=== PATIENT | female | born 1985 | race African-American/Black ===

== ENCOUNTER 2019-01-27 11:48 | Emergency (ER) | payer OTHER, SELFPAY ==
[2019-01-27 11:56] VITALS: BP 115/74; PULSE 78; RESP 22; TEMP 36.7; O2SAT 100; BMI 30.4
--- NOTE | 2019-01-27 12:01 | DI.RAD.S_ITS ---
PROCEDURE: XR CHEST 2V INDICATIONS: shortness of breath TECHNIQUE: 2 views of the chest were acquired. COMPARISON: None. FINDINGS: Surgical changes and devices: None. Lungs and pleura: Lungs are clear. No pleural effusions or pneumothorax. Mediastinum: Mediastinal contours are normal. Heart size is normal. Bones and chest wall: No suspicious bony abnormalities. Soft tissues appear unremarkable. Artificial hair artifact can be seen. IMPRESSION: No acute cardiopulmonary process is seen. Dictated by: Romario Medina M.D. on 01/27/2019 at 12:05 Approved by: Romario Medina M.D. on 01/27/2019 at 12:08
[2019-01-27 12:37] VITALS: BP 115/60; PULSE 84; RESP 18; O2SAT 100
[2019-01-27 12:52] VITALS: PULSE 72; RESP 24; O2SAT 100
[2019-01-27] MEDS: ALBUTEROL 2.5 MG/3 ML NEB (ADULT) INH (12:52)
[2019-01-27 13:08] LABS: Alanine Aminotransferase 27 IU/L (9-52); Albumin 4.5 g/dL (3.5-5.0); Albumin Globulin Ratio 1.3 (1.0-2.8); Alkaline Phosphatase 76 U/L (38-126); Aspartate Aminotransferase 28 IU/L (14-36); BUN Creatinine Ratio 14.3 (6-22); Bilirubin Total 0.3 mg/dL (0.2-1.3); Blood Urea Nitrogen 10 mg/dL (7-17); Calcium 9.6 mg/dL (8.4-10.2); Carbon Dioxide 28 mmol/L (22-32); Chloride 106 mmol/L (98-107); Estimated Glomerular Filt Rate > 60.0 mL/min (>60); Globulin 3.6 g/dL (1.7-4.1); Glucose 90 mg/dL (70-100); HEMOLYSIS < 15 (0-50); Potassium 3.7 mmol/L (3.4-5.1); Sodium 143 mmol/L (137-145); Total Protein 8.1 g/dL (6.3-8.2)
[2019-01-27 13:10] LABS: Lactate (Lactic Acid) 0.9 mmol/L (0.7-2.1)
--- NOTE | 2019-01-27 13:10 | ED.CHESTPAIN ---
HPI - Chest Pain General Chief Complaint: Chest Pain Stated Complaint: CHEST PRESSURE AND HARD TIME BREATHING Time Seen by Provider: 01/27/19 12:59 Source: patient Mode of arrival: ambulatory Limitations: no limitations History of Present Illness HPI narrative: 33-year-old female comes to the emergency department with complaint of chest pressure. Patient states it started 3 days ago. She states that she feels like she can't quite catch her breath. She states it is worse if she walks like say from the car but she does not appreciate if it is worse if she is going up the stairs. She denies any chest pain is more pressure. She has had a cough, she said there was mucus and a little bit of bloody tinged sputum on Tuesday and Tuesday. Now it is just a little bit of clear mucus. She has some chills and fevers which have improved. She is not any stuffy nose. She has not had any nausea no vomiting no diarrhea or constipation. She has felt like her stomach is more bubbly. No urinary symptoms, no swelling in her lower extremities. She has felt a little lightheaded but no syncope. Past medical history includes migraines, she has had C-sections no other surgeries. She does not take any medications regularly. She quit smoking tobacco 3 years ago, no alcohol, no illicit. She did have long distance travel from [place] to [place], they traveled through [place] by airline. She denies any family history of cardiac, pulmonary or embolic history. Related Data Previous Rx's Medication Instructions Recorded albuterol sulfate 2 puff INHALATION Q4-6H PRN #8 gram 01/27/19 prednisone 50 mg PO DAILY #5 tab 01/27/19 Allergies Allergy/AdvReac Type Severity Reaction Status Date / Time synthetic AdvReac Rash Uncoded 01/27/19 12:01 Review of Systems Review of Systems ROS Unobtainable: All systems reviewed & are unremarkable except as noted in HPI and below Constitutional Reports chills (Improved), Denies fatigue, Reports fever(s) (Improved), Denies lethargy and Denies weakness ENT Ears, Nose, Mouth, and Throat: Denies nasal congestion Cardiovascular Reports chest pain (Pressure), Denies diaphoresis, Denies syncope, Denies rapid heart rate, Denies edema, Denies irregular heart rhythm, Denies leg edema, Reports lightheadedness, Denies palpitations, Reports dyspnea (Feels like she can't catch her breath) and Denies orthopnea Respiratory Reports change in phlegm color, Denies chest congestion, Reports cough, Reports hemoptysis, Reports excessive phlegm production, Denies pain on inspiration, Denies pain with cough, Reports dyspnea (Feels like she can't catch her breath), Denies stridor and Denies wheezing Gastrointestinal Gastrointestinal: Denies abdominal pain, Denies change in bowel habits, Denies constipation, Denies diarrhea, Denies nausea and Denies vomiting Genitourinary Denies hematuria, Denies urinary frequency, Denies dysuria, Denies flank pain, Denies urinary incontinence and Denies urinary urgency Integumentary/Breasts Denies erythema Neurologic Denies syncope and Denies weakness Endocrine Denies fatigue and Denies palpitations Allergic/Immunologic Denies wheezing [facility] Medical History (Updated 01/27/19 @ 13:37 by Dot Johnson DO) Migraines (Chronic) Surgical History (Updated 01/27/19 @ 13:31 by Dot Johnson DO) History of (Chronic) Social History (Updated 01/27/19 @ 13:32 by Dot Johnson DO) Smoking Status: Former smoker alcohol intake: never substance use type: does not use Social History (Updated 01/27/19 @ 13:32 by Dot Johnson DO) Smoking Status: Former smoker alcohol intake: never substance use type: does not use Exam Narrative Exam Narrative: GEN: well nourished, well appearing female, alert and oriented x 3, patient appears to be in no acute distress. HEENT: Atraumatic, pupils are equal round reactive to light, extraocular movements are intact, nares are clear. HEART: Regular rate and rhythm without murmur, clicks, rubs. Pulses equal bilateral lower extremities. LUNGS:Lungs clear to auscultation, no wheezes, rales, crackles, chest moves symmetrically, no tachypnea, no accessory muscle use. ABD:bowel sounds normal, soft, non-tender, no guarding, rebound, rigidity, no masses noted, no hepatosplenomegaly :No CVA tenderness MSCL: Non-tender, full range of motion. Swelling of bilateral lower extremities. No erythema or skin changes. Patient has 2+ pulses in bilateral lower extremities. NEURO:CN 2-12 intact, sensation normal Initial Vital Signs Initial Vital Signs: Vital Signs Temperature 98.0 F 01/27/19 11:56 Pulse Rate 78 01/27/19 11:56 Respiratory Rate 22 01/27/19 11:56 Blood Pressure 115/74 01/27/19 11:56 Pulse Oximetry 100 01/27/19 11:56 Scores HEART Score Heart Score history: Slightly Suspicious Heart Score EKG: Normal Heart Score Age: < 45 years old Heart Score risk factors: No known risk factors Heart Score troponin: < or = to normal limit Heart Score Total: 0 PERC Score Age greater than or equal to 50 years: No Heart rate greater than or equal to 100 bpm: No Room Air O2 Sat less than 95%: No Unilateral leg swelling: No Recent trauma or surgery: No Hemoptysis: Yes Prior PE or DVT: No Hormone Use: No Total PERC Score: 1 Course Orders Ordered: ED Orders 01/27/19 11:53 EKG-12 Lead Stat 01/27/19 12:01 XR chest 2V Stat Measure peak expiratory flow ONCE RT Consult Eval and Treat Now 01/27/19 12:30 Complete Blood Count AUTO DIFF Stat Comprehensive Metabolic Panel Stat D Dimer Stat Lactate (Lactic Acid) Stat Troponin & CK Cardiac Panel Stat Discontinued Medications Albuterol (Ventolin) 2.5 mg INH NOW PRN PRN Reason: Wheezing Last Admin: 01/27/19 12:52 Dose: 2.5 mg Vital Signs - 8 hr 01/27/19 11:56 01/27/19 12:37 01/27/19 12:52 Temperature 98.0 F Pulse Rate 78 84 72 Respiratory Rate 22 18 24 Blood Pressure 115/74 Blood Pressure [Right Arm] 115/60 Pulse Oximetry 100 100 100 01/27/19 13:30 01/27/19 14:06 01/27/19 14:22 Temperature Pulse Rate 82 91 H 77 Respiratory Rate 13 19 21 Blood Pressure 124/66 Blood Pressure [Right Arm] 114/63 124/66 Pulse Oximetry 100 100 99 MDM - Chest Pain Lab Data Attestation: I reviewed the patient's lab results. Result diagrams: 01/27/19 12:30 01/27/19 12:30 Lab Results 01/27/19 01/27/19 01/27/19 Range/Units 12:30 12:30 12:30 WBC 7.3 (4.5-11.0) X10^3/uL RBC 4.35 (4.0-5.2) X10^6/uL Hgb 12.2 (12.0-16.0) g/dL Hct 36.7 (36-46) % MCV 84.4 (80-100) fL MCH 28.2 (26-34) PG MCHC 33.4 (30-36) % RDW 14.4 (11.6-14.8) % Plt Count 281 (150-400) X10^3/uL Neut % (Auto) 59.2 (50-75) % Lymph % (Auto) 34.1 (25-40) % [place] % (Auto) 5.7 (3-14) % Eos % (Auto) 0.6 L (2-4) % Baso % (Auto) 0.4 (0-2) % Neut # (Auto) 4400 (1047-5616) /uL Lymph # (Auto) 2500 (3039-0474) /uL [place] # (Auto) 400 (0-900) /uL Eos # (Auto) 0 (0-450) /uL Baso # (Auto) 0 (0-100) /uL D-Dimer (<230) ng/mL Sodium 143 (137-145) mmol/L Potassium 3.7 (3.4-5.1) mmol/L Chloride 106 (98-107) mmol/L Carbon Dioxide 28 (22-32) mmol/L BUN 10 (7-17) mg/dL Creatinine 0.70 (0.52-1.04) mg/dL Estimated GFR > 60.0 (>60) mL/min BUN/Creatinine Ratio 14.3 (6-22) Glucose 90 (70-100) mg/dL Lactate 0.9 (0.7-2.1) mmol/L Calcium 9.6 (8.4-10.2) mg/dL Total Bilirubin 0.3 (0.2-1.3) mg/dL AST 28 (14-36) IU/L ALT 27 (9-52) IU/L Alkaline Phosphatase 76 (38-126) U/L Total Creatine Kinase (30-135) U/L CK-MB (CK-2) CK-MB (CK-2) Rel Index Troponin I (0.01-0.034) ng/mL Total Protein 8.1 (6.3-8.2) g/dL Albumin 4.5 (3.5-5.0) g/dL Globulin 3.6 (1.7-4.1) g/dL Albumin/Globulin Ratio 1.3 (1.0-2.8) 01/27/19 01/27/19 Range/Units 12:30 12:30 WBC (4.5-11.0) X10^3/uL RBC (4.0-5.2) X10^6/uL Hgb (12.0-16.0) g/dL Hct (36-46) % MCV (80-100) fL MCH (26-34) PG MCHC (30-36) % RDW (11.6-14.8) % Plt Count (150-400) X10^3/uL Neut % (Auto) (50-75) % Lymph % (Auto) (25-40) % [place] % (Auto) (3-14) % Eos % (Auto) (2-4) % Baso % (Auto) (0-2) % Neut # (Auto) (9856-7125) /uL Lymph # (Auto) (1608-7287) /uL [place] # (Auto) (0-900) /uL Eos # (Auto) (0-450) /uL Baso # (Auto) (0-100) /uL D-Dimer < 200 (<230) ng/mL Sodium (137-145) mmol/L Potassium (3.4-5.1) mmol/L Chloride (98-107) mmol/L Carbon Dioxide (22-32) mmol/L BUN (7-17) mg/dL Creatinine (0.52-1.04) mg/dL Estimated GFR (>60) mL/min BUN/Creatinine Ratio (6-22) Glucose (70-100) mg/dL Lactate (0.7-2.1) mmol/L Calcium (8.4-10.2) mg/dL Total Bilirubin (0.2-1.3) mg/dL AST (14-36) IU/L ALT (9-52) IU/L Alkaline Phosphatase (38-126) U/L Total Creatine Kinase 81 (30-135) U/L CK-MB (CK-2) TNP CK-MB (CK-2) Rel Index TNP Troponin I < 0.012 (0.01-0.034) ng/mL Total Protein (6.3-8.2) g/dL Albumin (3.5-5.0) g/dL Globulin (1.7-4.1) g/dL Albumin/Globulin Ratio (1.0-2.8) Imaging Data Chest x-ray: Radiologist's impression: [address] [address] XRay Report Signed Patient: CINDY APONTE#: [id number] : 1985Acct:[id number] Age/Sex: 33 / FDate of Service: 01/27/19 Loc: ED Accession Number: [id number] Procedure: XR chest 2V Ordering Provider: Dot Johnson D.O. PROCEDURE: XR CHEST 2V INDICATIONS: shortness of breath TECHNIQUE: 2 views of the chest were acquired. COMPARISON: None. FINDINGS: Surgical changes and devices: None. Lungs and pleura: Lungs are clear. No pleural effusions or pneumothorax. Mediastinum: Mediastinal contours are normal. Heart size is normal. Bones and chest wall: No suspicious bony abnormalities. Soft tissues appear unremarkable. Artificial hair artifact can be seen. IMPRESSION: No acute cardiopulmonary process is seen. Dictated by: Romario Medina M.D. on 01/27/2019 at 12:05 Approved by: Romario Medina M.D. on 01/27/2019 at 12:08 ECG Data Attestation: I personally reviewed and interpreted this ECG as follows: Interpretation: Sinus rhythm with a rate 89 DC 155 QRS of 90 and QTC of 398. No ST elevation or depression appreciated. No S1, has Q3T3. No prior EKG available. MDM Narrative Medical decision making narrative: Patient comes in with complaint of shortness of breath cough and a little bit hemoptysis that was productive with mucus as well. Initially on exam she was wheezy for respiratory therapy gave her albuterol treatment which resolved her wheezing. Patient states she does not notice a big difference in her symptoms at this time. Patient's chest x-ray is negative, EKG shows no acute changes, patient has a little Q-wave in V3 but no S1. She has not have any vital sign changes. Lab work is normal with a normal CBC, CMP, D-dimer and troponin are negative. Discussed with patient her heart rate was above 90 at 1 point. She has had trouble, she has had a little bit hemoptysis with her shortness of breath. My suspicion is actually much more higher for bronchitis with her wheeze when she 1st arrived but we could evaluate with CT 8. Patient defers. She suspects that she also has bronchitis at this time. We discussed signs symptoms watch for and reasons to return emergently. Discharge Plan Departure Patient Disposition: Home Clinical Impression: Bronchitis Discharge Date/Time: 01/27/19 14:23 Interventions: ED Discharge Assessment Last Done: 01/27/19 14:22 Instructions: DI for Acute Bronchitis Activity Restrictions/Additional Instructions: Follow-up with primary care the next 24-48 hours for recheck. Call for an appointment. Take steroids until completely gone. Use albuterol inhaler 1-2 puffs every 4 hours as needed. Return to the emergency department for new fevers greater than a 100.4 F, chest pressure pain, worsening shortness of breath, persistent nausea or vomiting, black or bloody stools, passing out, worsening swelling of her lower extremities or other new or concerning symptoms. Prescriptions: New prednisone 50 mg tablet 50 mg PO DAILY Qty: 5 RF: 0 albuterol sulfate 90 mcg/actuation HFA aerosol inhaler 2 puff INHALATION Q4-6H PRN (Reason: shortness of breath or wheezing) Qty: 8 RF: 0
--- NOTE | 2019-01-27 13:14 | ED_ITS ---
HPI - Chest Pain General Chief Complaint: Chest Pain Stated Complaint: CHEST PRESSURE AND HARD TIME BREATHING Time Seen by Provider: 01/27/19 12:59 Source: patient Mode of arrival: ambulatory Limitations: no limitations History of Present Illness HPI narrative: 33-year-old female comes to the emergency department with complaint of chest pressure. Patient states it started 3 days ago. She states that she feels like she can't quite catch her breath. She states it is worse if she walks like say from the car but she does not appreciate if it is worse if she is going up the stairs. She denies any chest pain is more pressure. She has had a cough, she said there was mucus and a little bit of bloody tinged sput um on Tuesday and Tuesday. Now it is just a little bit of clear mucus. She has some chills and fevers which have improved. She is not any stuffy nose. She has not had any nausea no vomiting no diarrhea or constipation. She has felt like her stomach is more bubbly. No urinary symptoms, no swelling in her lower extremities. She has felt a little lightheaded but no syncope. Past medical history includes migraines, she has had C-sections no other surgeries. She does not take any medications regularly. She quit smoking tobacco 3 years ago, no alcohol, no illicit. She did have long distance travel from [place] to [place], they traveled through [place] by airline. She denies any family history of cardiac, pulmonary or embolic history. Related Data Previous Rx's Medication Instructions Recorded albuterol sulfate 2 puff INHALATION Q4-6H PRN #8 gram 01/27/19 prednisone 50 mg PO DAILY #5 tab 01/27/19 Allergies Allergy/AdvReac Type Severity Reaction Status Date / Time synthetic AdvReac Rash Uncoded 01/27/19 12:01 Review of Systems Review of Systems ROS Unobtainable: All systems reviewed & are unremarkable except as noted in HPI and below Constitutional Reports chills (Improved), Denies fatigue, Reports fever(s) (Improved), Denies lethargy and Denies weakness ENT Ears, Nose, Mouth, and Throat: Denies nasal congestion Cardiovascular Reports chest pain (Pressure), Denies diaphoresis, Denies syncope, Denies rapid heart rate, Denies edema, Denies irregular heart rhythm, Denies leg edema, Reports lightheadedness, Denies palpitations, Reports dyspnea (Feels like she can't catch her breath) and Denies orthopnea Respiratory Reports change in phlegm color, Denies chest congestion, Reports cough, Reports hemoptysis, Reports excessive phlegm production, Denies pain on inspiration, Denies pain with cough, Reports dyspnea (Feels like she can't catch her breath), Denies stridor and Denies wheezing Gastrointestinal Gastrointestinal: Denies abdominal pain, Denies change in bowel habits, Denies constipation, Denies diarrhea, Denies nausea and Denies vomiting Genitourinary Denies hematuria, Denies urinary frequency, Denies dysuria, Denies flank pain, Denies urinary incontinence and Denies urinary urgency Integumentary/Breasts Denies erythema Neurologic Denies syncope and Denies weakness Endocrine Denies fatigue and Denies palpitations Allergic/Immunologic Denies wheezing PFSH Medical History (Updated 01/27/19 @ 13:37 by Dot Johnson DO) Migraines (Chronic) Surgical History (Updated 01/27/19 @ 13:31 by Dot Johnson DO) History of (Chronic) Social History (Updated 01/27/19 @ 13:32 by Dot Johnson DO) Smoking Status: Former smoker alcohol intake: never substance use type: does not use Social History (Updated 01/27/19 @ 13:32 by Dot Johnson DO) Smoking Status: Former smoker alcohol intake: never substance use type: does not use Exam Narrative Exam Narrative: GEN: well nourished, well appearing female, alert and oriented x 3, patient appears to be in no acute distress. HEENT: Atraumatic, pupils are equal round reactive to light, extraocular movements are intact, nares are clear. HEART: Regular rate and rhythm without murmur, clicks, rubs. Pulses equal bilateral lower extremities. LUNGS:Lungs clear to auscultation, no wheezes, rales, crackles, chest moves symmetrically, no tachypnea, no accessory muscle use. ABD:bowel sounds normal, soft, non-tender, no guarding, rebound, rigidity, no masses noted, no hepatosplenomegaly :No CVA tenderness MSCL: Non-tender, full range of motion. Swelling of bilateral lower extremities. No erythema or skin changes. Patient has 2+ pulses in bilateral l ower extremities. NEURO:CN 2-12 intact, sensation normal Initial Vital Signs Initial Vital Signs: Vital Signs Temperature 98.0 F 01/27/19 11:56 Pulse Rate 78 01/27/19 11:56 Respiratory Rate 22 01/27/19 11:56 Blood Pressure 115/74 01/27/19 11:56 Pulse Oximetry 100 01/27/19 11:56 Scores HEART Score Heart Score history: Slightly Suspicious Heart Score EKG: Normal Heart Score Age: < 45 years old Heart Score risk factors: No known risk factors Heart Score troponin: < or = to normal limit Heart Score Total: 0 PERC Score Age greater than or equal to 50 years: No Heart rate greater than or equal to 100 bpm: No Room Air O2 Sat less than 95%: No Unilateral leg swelling: No Recent trauma or surgery: No Hemoptysis: Yes Prior PE or DVT: No Hormone Use: No Total PERC Score: 1 Course Orders Ordered: ED Orders 01/27/19 11:53 EKG-12 Lead Stat 01/27/19 12:01 XR chest 2V Stat Measure peak expiratory flow ONCE RT Consult Eval and Treat Now 01/27/19 12:30 Complete Blood Count AUTO DIFF Stat Comprehensive Metabolic Panel Stat D Dimer Stat Lactate (Lactic Acid) Stat Troponin & CK Cardiac Panel Stat Discontinued Medications Albuterol (Ventolin) 2.5 mg INH NOW PRN PRN Reason: Wheezing Last Admin: 01/27/19 12:52 Dose: 2.5 mg Vital Signs - 8 hr 01/27/19 11:56 01/27/19 12:37 01/27/19 12:52 Temperature 98.0 F Pulse Rate 78 84 72 Respiratory Rate 22 18 24 Blood Pressure 115/74 Blood Pressure [Right Arm] 115/60 Pulse Oximetry 100 100 100 01/27/19 13:30 01/27/19 14:06 01/27/19 14:22 Temperature Pulse Rate 82 91 H 77 Respiratory Rate 13 19 21 Blood Pressure 124/66 Blood Pressure [Right Arm] 114/63 124/66 Pulse Oximetry 100 100 99 MDM - Chest Pain Lab Data Attestation: I reviewed the patient's lab results. Result diagrams: 01/27/19 12:30 01/27/19 12:30 Lab Results 01/27/19 01/27/19 01/27/19 Range/Units 12:30 12:30 12:30 WBC 7.3 (4.5-11.0) X10^3/uL RBC 4.35 (4.0-5.2) X10^6/uL Hgb 12.2 (12.0-16.0) g/dL Hct 36.7 (36-46) % MCV 84.4 (80-100) fL MCH 28.2 (26-34) PG MCHC 33.4 (30-36) % RDW 14.4 (11.6-14.8) % Plt Count 281 (150-400) X10^3/uL Neut % (Auto) 59.2 (50-75) % Lymph % (Auto) 34.1 (25-40) % [place] % (Auto) 5.7 (3-14) % Eos % (Auto) 0.6 L (2-4) % Baso % (Auto) 0.4 (0-2) % Neut # (Auto) 4400 (2897-4966) /uL Lymph # (Auto) 2500 (1212-0412) /uL [place] # (Auto) 400 (0-900) /uL Eos # (Auto) 0 (0-450) /uL Baso # (Auto) 0 (0-100) /uL D-Dimer (<230) ng/mL Sodium 143 (137-145) mmol/L Potassium 3.7 (3.4-5.1) mmol/L Chloride 106 (98-107) mmol/L Carbon Dioxide 28 (22-32) mmol/L BUN 10 (7-17) mg/dL Creatinine 0.70 (0.52-1.04) mg/dL Estimated GFR > 60.0 (>60) mL/min BUN/Creatinine Ratio 14.3 (6-22) Glucose 90 (70-100) mg/dL Lactate 0.9 (0.7-2.1) mmol/L Calcium 9.6 (8.4-10.2) mg/dL Total Bilirubin 0.3 (0.2-1.3) mg/dL AST 28 (14-36) IU/L ALT 27 (9-52) IU/L Alkaline Phosphatase 76 (38-126) U/L Total Creatine Kinase (30-135) U/L CK-MB (CK-2) CK-MB (CK-2) Rel Index Troponin I (0.01-0.034) ng/mL Total Protein 8.1 (6.3-8.2) g/dL Albumin 4.5 (3.5-5.0) g/dL Globulin 3.6 (1.7-4.1) g/dL Albumin/Globulin Ratio 1.3 (1.0-2.8) 01/27/19 01/27/19 Range/Units 12:30 12:30 WBC (4.5-11.0) X10^3/uL RBC (4.0-5.2) X10^6/uL Hgb (12.0-16.0) g/dL Hct (36-46) % MCV (80-100) fL MCH (26-34) PG MCHC (30-36) % RDW (11.6-14.8) % Plt Count (150-400) X10^3/uL Neut % (Auto) (50-75) % Lymph % (Auto) (25-40) % [place] % (Auto) (3-14) % Eos % (Auto) (2-4) % Baso % (Auto) (0-2) % Neut # (Auto) (6791-9248) /uL Lymph # (Auto) (7978-7393) /uL [place] # (Auto) (0-900) /uL Eos # (Auto) (0-450) /uL Baso # (Auto) (0-100) /uL D-Dimer < 200 (<230) ng/mL Sodium (137-145) mmol/L Potassium (3.4-5.1) mmol/L Chloride (98-107) mmol/L Carbon Dioxide (22-32) mmol/L BUN (7-17) mg/dL Creatinine (0.52-1.04) mg/dL Estimated GFR (>60) mL/min BUN/Creatinine Ratio (6-22) Glucose (70-100) mg/dL Lactate (0.7-2.1) mmol/L Calcium (8.4-10.2) mg/dL Total Bilirubin (0.2-1.3) mg/dL AST (14-36) IU/L ALT (9-52) IU/L Alkaline Phosphatase (38-126) U/L Total Creatine Kinase 81 (30-135) U/L CK-MB (CK-2) TNP CK-MB (CK-2) Rel Index TNP Troponin I < 0.012 (0.01-0.034) ng/mL Total Protein (6.3-8.2) g/dL Albumin (3.5-5.0) g/dL Globulin (1.7-4.1) g/dL Albumin/Globulin Ratio (1.0-2.8) Imaging Data Chest x-ray: Radiologist's impression: [address] [address] XRay Report Signed Patient: CINDY APONTE#: [id number] : 1985Acct:[id number] Age/Sex: 33 / FDate of Service: 01/27/19 Loc: ED Accession Number: [id number] Procedure: XR chest 2V Ordering Provider: Dot Johnson D.O. PROCEDURE: XR CHEST 2V INDICATIONS: shortness of breath TECHNIQUE: 2 views of the chest were acquired. COMPARISON: None. FINDINGS: Surgical changes and devices: None. Lungs and pleura: Lungs are clear. No pleural effusions or pneumothorax. Mediastinum: Mediastinal contours are normal. Heart size is normal. Bones and chest wall: No suspicious bony abnormalities. Soft tissues appear unremarkable. Artificial hair artifact can be seen. IMPRESSION: No acute cardiopulmonary process is seen. Dictated by: Romario Medina M.D. on 01/27/2019 at 12:05 Approved by: Romario Medina M.D. on 01/27/2019 at 12:08 ECG Data Attestation: I personally reviewed and interpreted this ECG as follows: Interpretation: Sinus rhythm with a rate 89 NM 155 QRS of 90 and QTC of 398. No ST elevation or depression appreciated. No S1, has Q3T3. No prior EKG available. MDM Narrative Medical decision making narrative: Patient comes in with complaint of shortness of breath cough and a little bit hemoptysis that was productive with mucus as well. Initially on exam she was wheezy for respiratory therapy gave her albuterol treatment which resolved her wheezing. Patient states she does not notice a big difference in her symptoms at this time. Patient's chest x-ray is negative, EKG shows no acute changes, patient has a little Q-wave in V3 but no S1. She has not have any vital sign changes. Lab work is normal with a normal CBC, CMP, D-dimer and troponin are negative. Discussed with patient her heart rate was above 90 at 1 point. She has had trouble, she has had a little bit hemoptysis with her shortness of breath. My suspicion is actually much more higher for bronchitis with her wheeze when she 1st arrived but we could evaluate with CT 8. Patient defers. She suspects that she also has bronchitis at this time. We discussed signs symptoms watch for and reasons to return emergently. Discharge Plan Departure Patient Disposition: Home Clinical Impression: Bronchitis Discharge Date/Time: 01/27/19 14:23 Interventions: ED Discharge Assessment Last Done: 01/27/19 14:22 Instructions: DI for Acute Bronchitis Activity Restrictions/Additional Instructions: Follow-up with primary care the next 24-48 hours for recheck. Call for an appointment. Take steroids until completely gone. Use albuterol inhaler 1-2 puffs every 4 hours as needed. Return to the emergency department for new fevers greater than a 100.4 F, chest pressure pain, worsening shortness of breath, persistent nausea or vomiting, black or bloody stools, passing out, worsening swelling of her lower extremities or other new or concerning symptoms. Prescriptions: New prednisone 50 mg tablet 50 mg PO DAILY Qty: 5 RF: 0 albuterol sulfate 90 mcg/actuation HFA aerosol inhaler 2 puff INHALATION Q4-6H PRN (Reason: shortness of breath or wheezing) Qty: 8 RF: 0
[2019-01-27 13:18] LABS: Add Manual Diff / Slide Review NO; Basophils Absolute Auto 0 /uL (0-100); Basophils Percent Auto 0.4 % (0-2); Eosinophils Absolute Auto 0 /uL (0-450); Eosinophils Percent Auto 0.6 % (2-4); Hematocrit 36.7 % (36-46); Hemoglobin 12.2 g/dL (12.0-16.0); Lymphocytes Absolute Auto 2500 /uL (1100-4500); Lymphocytes Percent Auto 34.1 % (25-40); Mean Corpuscular HGB Conc 33.4 % (30-36); Mean Corpuscular Hemoglobin 28.2 PG (26-34); Mean Corpuscular Volume 84.4 fL (80-100); Monocytes Absolute Auto 400 /uL (0-900); Monocytes Percent Auto 5.7 % (3-14); Neutrophils Absolute Auto 4400 /uL (1500-7000); Neutrophils Percent Auto 59.2 % (50-75); Platelet Count 281 X10^3/uL (150-400); Red Blood Cell Count 4.35 X10^6/uL (4.0-5.2); Red Cell Distribution Width 14.4 % (11.6-14.8); White Blood Cell Count 7.3 X10^3/uL (4.5-11.0)
[2019-01-27 13:30] VITALS: BP 114/63; PULSE 82; RESP 13; O2SAT 100
[2019-01-27 13:37] LABS: Creatine Kinase 81 U/L (30-135)
[2019-01-27 13:44] LABS: D Dimer < 200 ng/mL (<230)
[2019-01-27 13:50] LABS: Troponin I < 0.012 ng/mL (0.01-0.034)
[2019-01-27 14:06] VITALS: BP 124/66; PULSE 91; RESP 19; O2SAT 100
[2019-01-27 14:22] VITALS: BP 124/66; PULSE 77; RESP 21; O2SAT 99
== END 2019-01-27 14:23 | disposition home or self-care (01) ==
PROVIDERS: Emergency Provider Emergency Medicine
DX: J40 Bronchitis, not specified as acute or chronic (principal); R07.9 Chest pain, unspecified
CPT/HCPCS: 36415; 71046; 80053; 82550; 83605; 84484; 85025; 85379; 93005; 93041; 94150; 94640; 99283; 99285; J7613